=== PATIENT | female | born 1955 | race Two or more races ===

== ENCOUNTER 2017-01-21 16:08 | Inpatient (IN) | payer OTHER ==
[~2017-01-21] VITALS: Ht 162.6 cm; Wt 76.0 kg
[2017-01-21] MEDS ORDERED: Ketorolac 30mg Inj IV ONE (16:15)
--- NOTE | 2017-01-21 16:26 | Emergency Room Report ---
History of Present Illness General Chief Complaint: Abdominal Pain Source: Patient Present Illness HPI The patient presents with abdominal pain. She's been treated for a UTI/ pyelonephritis at [facility]. She is receiving meds for pain and antibiotics, receiving IV medications at home. She states that the pain is 10/10 when she is laying down but increases to 8/10 when she's awaken standing up. She denies any fevers chills vomiting at this time. Paramedics were summoned because the pain became severe. Not move bowels for 4 days. No chest pain, productive cough, extremity pain. She has had some HOOKS going up stairs with weakness. Allergies: Coded Allergies: No Known Allergies (Unverified , 01/21/17) Patient History Past Medical History: see triage record, old chart reviewed, other - review of records from [facility] - h/o pyelonephritis and treated for HTN Social History: Denies: alcohol use, smoking Social History Narrative with friend Reviewed Nursing Documentation: PMH: Agreed, PSxH: Agreed Nursing Documentation-PMH Past Medical History: No History, Except For Hx Hypertension: Yes Review of Systems All Other Systems: negative except mentioned in HPI Physical Exam Vital Signs Date Time Temp Pulse Resp B/P Pulse Ox O2 Delivery O2 Flow Rate FiO2 01/21/17 16:07 97.9 73 18 180/75 99 Sp02 EP Interpretation: reviewed, normal General Appearance: well appearing, no apparent distress, GCS 15 Head: normocephalic Eyes: bilateral eye PERRL, bilateral eye normal inspection ENT: moist mucus membranes Neck: supple Respiratory: lungs clear, normal breath sounds Cardiovascular #1: regular rate, rhythm Cardiovascular #2: 2+ radial (R) Gastrointestinal: normal inspection, normal bowel sounds, non tender, no mass, non-distended, overweight Musculoskeletal: back normal, gait/station normal, normal range of motion Neurologic: alert, oriented x3, motor strength/tone normal, DTRs symmetric, sensory intact, speech normal Psychiatric: mood/affect normal Skin: normal inspection, warm/dry Medical Decision Making Diagnostic Impression: Primary Impression: Hypokalemia Additional Impressions: Hypocalcemia Abdominal pain Qualified Codes: R10.30 - Lower abdominal pain, unspecified Hypoalbuminemia Anemia Qualified Codes: D50.8 - Other iron deficiency anemias ER Course Patient presents with abdominal pain. DDx; constipation, diverticulitis, partially treated pyelonephritis, gastroenteritis amongst others. Complicated history with recent admission for pyelo and receiving IV medications (unknown what antibiotics after review of d/c records). Need for urgent evaluation with labs, abd xrays, EKG. Based on abdominal exam and history, CT not indicated at this time. Will treat with IV hydration and analgesia. Patient had an enema here and had some soft stool as a result. She's is complaining of abdominal pain afterwards. She is a nonsurgical belly at this time. Calcium is extremely well as is potassium. Both of these are ordered to be replaced. Checking ionized calcium. Improved with treatment. Admit med Dr. Rubio. Laboratory Tests Test 01/21/17 17:00 01/21/17 17:30 01/21/17 18:18 White Blood Count 3.3 K/UL (4.8-10.8) L Red Blood Count 2.63 M/UL (4.20-5.40) L Hemoglobin 7.3 G/DL (12.0-16.0) L Hematocrit 21.6 % (37.0-47.0) L Mean Corpuscular Volume 82 FL (80-99) Mean Corpuscular Hemoglobin 27.7 PG (27.0-31.0) Mean Corpuscular Hemoglobin Concent 33.8 G/DL (32.0-36.0) Red Cell Distribution Width 14.8 % (11.6-14.8) Platelet Count 142 K/UL (150-450) L Mean Platelet Volume 6.6 FL (6.5-10.1) Neutrophils (%) (Auto) % (45.0-75.0) Lymphocytes (%) (Auto) % (20.0-45.0) Monocytes (%) (Auto) % (1.0-10.0) Eosinophils (%) (Auto) % (0.0-3.0) Basophils (%) (Auto) % (0.0-2.0) Differential Total Cells Counted 100 Neutrophils % (Manual) 59 % (45-75) Lymphocytes % (Manual) 37 % (20-45) Monocytes % (Manual) 2 % (1-10) Eosinophils % (Manual) 2 % (0-3) Basophils % (Manual) 0 % (0-2) Band Neutrophils 0 % (0-8) Platelet Estimate Decreased L Platelet Morphology Normal Red Blood Cell Morphology Normal Polychromasia 1+ Anisocytosis 1+ Prothrombin Time 11.4 SEC (9.30-11.50) Prothrombin Time INR 1.1 (0.9-1.1) PTT 26 SEC (23-33) Sodium Level 142 mEQ/L (135-145) Potassium Level 2.2 mEQ/L (3.4-4.9) *L Chloride Level 109 mEQ/L (98-107) H Carbon Dioxide Level 16 mEQ/L (20-30) L Anion Gap 17 (5-15) H Blood Urea Nitrogen 11 mg/dL (7-23) Creatinine 0.9 mg/dL (0.5-0.9) Estimate Glomerular Filtration Rate > 60 mL/min (>60) Glucose Level 115 mg/dL (74-106) H Calcium Level 5.2 mg/dL (8.6-10.2) *L Total Bilirubin < 0.2 mg/dL (0.0-1.2) Aspartate Amino Transferase (AST) 13 U/L (5-40) Alanine Aminotransferase (ALT) 7 U/L (3-33) Alkaline Phosphatase 38 U/L (35-104) Total Protein 4.6 g/dL (6.6-8.7) L Albumin 1.7 g/dL (3.5-5.2) L Globulin 2.9 g/dL Albumin/Globulin Ratio 0.5 (1.0-2.7) L Lipase 13 U/L (< 60) Urine Color Pale yellow Urine Appearance Clear Urine pH 6.5 (4.5-8.0) Urine Specific [place] 1.010 (1.005-1.035) Urine Protein 4+ (NEGATIVE) H Urine Glucose (UA) 1+ (NEGATIVE) H Urine Ketones Negative (NEGATIVE) Urine Occult Blood 1+ (NEGATIVE) H Urine Nitrite Negative (NEGATIVE) Urine Bilirubin Negative (NEGATIVE) Urine Urobilinogen Normal MG/DL (0.0-1.0) Urine Leukocyte Esterase 1+ (NEGATIVE) H Urine RBC 2-4 /HPF (0 - 2) H Urine WBC 10-15 /HPF (0 - 2) H Urine Squamous Epithelial Cells Moderate /LPF (NONE/OCC) H Urine Bacteria Few /HPF (NONE) Ionized Calcium (Measured) 1.18 mmol/L (1.10-1.35) EKG Diagnostic Results Rate: normal Rhythm: NSR ST Segments: no acute changes Rhythm Strip Diag. Results EP Interpretation: yes Rhythm: NSR, no PVC's, no ectopy Other X-Ray Diagnostic Results Other X-Ray Diagnostic Results : X-Ray Ordered: abd EP Interpretation: Yes Findings: other - paucity gas, no masses, no SBO Number of Views: 1 Last Vital Signs Date Time Temp Pulse Resp B/P Pulse Ox O2 Delivery O2 Flow Rate FiO2 01/22/17 00:00 97.7 69 20 153/89 98 Room Air Status: improved Disposition: ADMITTED INPATIENT Condition: Serious Juaquin Cantu M.D. Jan 21, 2017 16:26
[2017-01-21] MEDS ORDERED: Fleet's Enema 133ml RECTAL ONE (16:45)
[2017-01-21 17:27] LABS: MEAN CORPUSCULAR HEMOGLOBIN 27.7 PG (27.0-31.0); MEAN CORPUSCULAR HGB CONC 33.8 G/DL (32.0-36.0); MEAN CORPUSCULAR VOLUME 82 FL (80-99); MEAN PLATELET VOLUME 6.6 FL (6.5-10.1); PLATELET COUNT 142 K/UL (150-450); RED BLOOD COUNT 2.63 M/UL (4.20-5.40); RED CELL DISTRIBUTION WIDTH 14.8 % (11.6-14.8); WHITE BLOOD COUNT 3.3 K/UL (4.8-10.8)
[2017-01-21 17:44] LABS: ALANINE AMINOTRANSFERASE 7 U/L (3-33); ALBUMIN/GLOBULIN RATIO 0.5 (1.0-2.7); ASPARTATE AMINO TRANSFERASE 13 U/L (5-40); CARBON DIOXIDE 16 mEQ/L (20-30); CHLORIDE 109 mEQ/L (98-107); CREATININE 0.9 mg/dL (0.5-0.9); GLOMERULAR FILTRATION RATE > 60 mL/min (>60); HEMOLYSIS 0; LIPASE 13 U/L (< 60); SODIUM 142 mEQ/L (135-145); TOTAL PROTEIN 4.6 g/dL (6.6-8.7)
[2017-01-21 17:46] LABS: APPEARANCE,URINE CLEAR; KETONES,URINE NEGATIVE (NEGATIVE); LEUKOCYTE ESTERASE ,URINE 1+ (NEGATIVE); NITRITE,URINE NEGATIVE (NEGATIVE); PH,URINE 6.5 (4.5-8.0); PROTEIN,URINE 4+ (NEGATIVE); UROBILINOGEN,URINE NORMAL MG/DL (0.0-1.0)
[2017-01-21 17:49] LABS: ANION GAP 17 (5-15)
[2017-01-21 17:51] LABS: CALCIUM 5.2 mg/dL (8.6-10.2); POTASSIUM 2.2 mEQ/L (3.4-4.9)
[2017-01-21] MEDS ORDERED: KCl 10% 40mEq/30ml liquid ORAL STA (17:55)
[2017-01-21 17:58] LABS: BACTERIA,URINE FEW /HPF; SQUAMOUS EPITHELIAL CELL,UR MODERATE /LPF (NONE/OCC)
[2017-01-21] MEDS ORDERED: Calcium Gluconate 1gm/10ml vial ONE ×2 (17:59→18:01)
[2017-01-21] MEDS ORDERED: Calcium Gluconate 10% 2 GM in NS 110 ML IVPB ONE (18:00)
[2017-01-21 18:03] LABS: INR 1.1 (0.9-1.1); PROTHROMBIN TIME 11.4 SEC (9.30-11.50)
[2017-01-21 18:53] VITALS: BP 175/79
[2017-01-21 18:56] LABS: BAND NEUTROPHILS % (MANUAL) 0 % (0-8); BASOPHILS % (MANUAL) 0 % (0-2); EOSINOPHILS % (MANUAL) 2 % (0-3); LYMPHOCYTES % (MANUAL) 37 % (20-45); NEUTROPHILS % (MANUAL) 59 % (45-75); TOTAL CELLS COUNTED 100
[2017-01-21 18:58] LABS: ANISOCYTOSIS 1+; PLATELET MORPHOLOGY NORMAL
[2017-01-21 18:59] LABS: PLATELET ESTIMATE DECREASED; POLYCHROMASIA 1+
[2017-01-21] MEDS ORDERED: CARVEDILOL6.25 MG ORAL (20:12)
[2017-01-21] MEDS ORDERED: AMLODIPINE BESY10 MG ORAL (20:12)
[2017-01-21] MEDS ORDERED: ATORVASTATIN CA80 MG ORAL (20:12)
[2017-01-21] MEDS ORDERED: INVANZ1 GM IVPB (20:12)
[2017-01-21] MEDS ORDERED: ASPIRIN81 MG ORAL (20:12)
[2017-01-21] MEDS ORDERED: BENAZEPRIL HCL5 MG ORAL (20:12)
[2017-01-21] MEDS ORDERED: GABAPENTIN300 MG ORAL (20:12)
[2017-01-21] MEDS ORDERED: PROAIR HFA8.5 GM INH (20:12)
[2017-01-21] MEDS ORDERED: HYDRALAZINE HCL50 MG ORAL (20:17)
[2017-01-21] MEDS ORDERED: NOVOLIN 70/305 UNIT1 SUBQ ×2 (20:17)
[2017-01-21 21:05] VITALS: BP 170/75
[2017-01-21 21:45] VITALS: BP 184/77
[2017-01-21] MEDS ORDERED: Mylanta II UD 30ml ORAL PRN (21:45)
[2017-01-21] MEDS ORDERED: Miralax 17gm pkt ORAL PRN (21:45)
[2017-01-21 22:00] VITALS: BP 179/75
[2017-01-21] MEDS: Atorvastatin 80mg tab ORAL SCH (22:00)
[2017-01-21] MEDS: HydrALAZINE 50mg tab ORAL SCH (22:00)
[2017-01-21] MEDS ORDERED: Albuterol 90mcg Inhaler 8gm INH PRN (22:00)
[2017-01-21] MEDS: Docusate 100mg tablet ORAL SCH (22:00)
[2017-01-21] MEDS ORDERED: DuoNeb 0.5-3(2.5)mg/3ml neb HHN PRN (22:00)
[2017-01-21] MEDS: Carvedilol 6.25mg Tab ORAL SCH (22:00)
[2017-01-21] MEDS ORDERED: Ertapenem (INVanz) Inj IV SCH (22:00)
[2017-01-21 22:30] VITALS: BP 158/81
[2017-01-21] MEDS: NS w/KCl 40mEq 1,000 ML IV SCH (22:30)
--- NOTE | 2017-01-21 22:58 | History and Physical ---
History of Present Illness General Date patient seen: Jan 21, 2017 Time patient seen: 22:58 Reason for Hospitalization: Abdominal Pain Present Illness HPI 61 y/o female with pmh of HTN, HLD, DM2 who presents with abd pain. Pt recently admitted at [facility] form 01/15-01/19 when she presented with similar symptoms of abd pain. She was diagnosed with pyelonephritis and diagnosed home w/ home health for IV ertapenem x 1 week (01/20-01/27) per . Pt was doing well but noted worsening abd pain described as LLQ pain, worse w/ movement. She denies f/c, n/v, d/c, chest pain, SOB. Pt denies blood in stool, dysuria. Paramedics were called since pain became too severe while at home. In ED, pt noted to have hgb 7.3. Per ED physician, guaiac neg stool. Pt was given 2U pRBCs. Labs also notable for hypokaleia to 2.2, hypoclacemia to 5.2 but ionized Ca wnl, hypoalbuinemia. Abd x-ray neg. Allergies: Coded Allergies: No Known Allergies (Unverified , 01/21/17) Medication History Scheduled Albuterol Sulfate* (Proair Hfa*), 2 PUFFS INH EVERY 4 HOURS, (Reported) Amlodipine Besylate* (Amlodipine Besylate*), 10 MG ORAL DAILY, (Reported) Aspirin* (Aspirin*), 81 MG ORAL DAILY, (Reported) Atorvastatin Calcium* (Lipitor*), 80 MG ORAL DAILY, (Reported) Benazepril Hcl (Benazepril Hcl), 5 MG ORAL DAILY, (Reported) Carvedilol* (Carvedilol*), 6.25 MG ORAL TWICE A DAY, (Reported) Ertapenem Sodium* (INVanz*), 500 MG IVPB Q24H, (Reported) Gabapentin* (Gabapentin*), 300 MG ORAL THREE TIMES A DAY, (Reported) Hydralazine Hcl* (Hydralazine Hcl*), 50 MG ORAL THREE TIMES A DAY, (Reported) Insulin Human Isophan/Regular (Humulin 70-30 Vial), 22 UNITS SUBQ BEFORE BREAKFAST, (Reported) Insulin Human Isophan/Regular (Humulin 70-30 Vial), 20 UNITS SUBQ BEFORE DINNER, (Reported) Patient History History Provided By: Patient, Family Member, Medical Record, EMS Healthcare decision maker Pt's Resuscitation status Full Code Advanced Directive on File Family History Family History: Patient reports no known family medical history. Social History Social History: (1) No significant social history Review of Systems ROS Narrative CONSTITUTIONAL: No weight loss, fever, chills, weakness or fatigue. HEENT: Eyes: No visual loss, blurred vision, double vision or yellow sclerae. Ears, Nose, Throat: No hearing loss, sneezing, congestion, runny nose or sore throat. SKIN: No rash or itching. CARDIOVASCULAR: No chest pain, chest pressure or chest discomfort. No palpitations or edema. RESPIRATORY: No shortness of breath, cough or sputum. GASTROINTESTINAL: No anorexia, nausea, vomiting or diarrhea. +Abd pain NEUROLOGICAL: No headache, dizziness, syncope, paralysis, ataxia, numbness or tingling in the extremities. No change in bowel or bladder control. MUSCULOSKELETAL: No muscle, back pain, joint pain or stiffness. HEMATOLOGIC: No anemia, bleeding or bruising. LYMPHATICS: No enlarged nodes. No history of splenectomy. PSYCHIATRIC: No history of depression or anxiety. ENDOCRINOLOGIC: No reports of sweating, cold or heat intolerance. No polyuria or polydipsia. ALLERGIES: No history of asthma, hives, eczema or rhinitis. Physical Exam Physical Exam Narrative General: alert, cooperative, no distress, appears stated age Head: normocephalic, without obvious abnormality, atraumatic Eyes: conjunctivae/corneas clear. PERRL, EOM's intact Throat: lips, mucosa, and tongue normal. MMM Neck: supple, symmetrical, trachea midline, and no JVD Lungs: clear to auscultation bilaterally Heart: regular rate and rhythm, S1, S2 normal, no murmur, click, rub or gallop Abdomen: soft, +TTP of LLQ w/o rebound or guarding, non-distended, bowel sounds normal; no masses or organomegaly Extremities: extremities normal, atraumatic, no cyanosis or edema Pulses: 2+ and symmetric Skin: skin color, texture, turgor normal; no rashes or lesions Neurologic: grossly normal, no focal deficits Last 24 Hour Vital Signs Date Time Temp Pulse Resp B/P Pulse Ox O2 Delivery O2 Flow Rate FiO2 01/21/17 22:30 97.5 70 20 158/81 98 Room Air 01/21/17 22:00 97.6 67 16 01/21/17 22:00 97.8 72 16 179/75 99 01/21/17 21:45 97.8 71 16 01/21/17 21:45 97.8 72 16 184/77 99 01/21/17 21:05 97.9 72 18 170/75 99 01/21/17 18:53 97.9 67 18 175/79 99 01/21/17 18:00 97.9 01/21/17 16:07 97.9 73 18 180/75 99 Laboratory Tests Test 01/21/17 17:00 01/21/17 17:30 01/21/17 18:18 White Blood Count 3.3 K/UL (4.8-10.8) L Red Blood Count 2.63 M/UL (4.20-5.40) L Hemoglobin 7.3 G/DL (12.0-16.0) L Hematocrit 21.6 % (37.0-47.0) L Mean Corpuscular Volume 82 FL (80-99) Mean Corpuscular Hemoglobin 27.7 PG (27.0-31.0) Mean Corpuscular Hemoglobin Concent 33.8 G/DL (32.0-36.0) Red Cell Distribution Width 14.8 % (11.6-14.8) Platelet Count 142 K/UL (150-450) L Mean Platelet Volume 6.6 FL (6.5-10.1) Neutrophils (%) (Auto) % (45.0-75.0) Lymphocytes (%) (Auto) % (20.0-45.0) Monocytes (%) (Auto) % (1.0-10.0) Eosinophils (%) (Auto) % (0.0-3.0) Basophils (%) (Auto) % (0.0-2.0) Differential Total Cells Counted 100 Neutrophils % (Manual) 59 % (45-75) Lymphocytes % (Manual) 37 % (20-45) Monocytes % (Manual) 2 % (1-10) Eosinophils % (Manual) 2 % (0-3) Basophils % (Manual) 0 % (0-2) Band Neutrophils 0 % (0-8) Platelet Estimate Decreased L Platelet Morphology Normal Red Blood Cell Morphology Normal Polychromasia 1+ Anisocytosis 1+ Prothrombin Time 11.4 SEC (9.30-11.50) Prothromb Time International Ratio 1.1 (0.9-1.1) Activated Partial Thromboplast Time 26 SEC (23-33) Sodium Level 142 mEQ/L (135-145) Potassium Level 2.2 mEQ/L (3.4-4.9) *L Chloride Level 109 mEQ/L (98-107) H Carbon Dioxide Level 16 mEQ/L (20-30) L Anion Gap 17 (5-15) H Blood Urea Nitrogen 11 mg/dL (7-23) Creatinine 0.9 mg/dL (0.5-0.9) Estimat Glomerular Filtration Rate > 60 mL/min (>60) Glucose Level 115 mg/dL (74-106) H Calcium Level 5.2 mg/dL (8.6-10.2) *L Total Bilirubin < 0.2 mg/dL (0.0-1.2) Aspartate Amino Transf (AST/SGOT) 13 U/L (5-40) Alanine Aminotransferase (ALT/SGPT) 7 U/L (3-33) Alkaline Phosphatase 38 U/L (35-104) Total Protein 4.6 g/dL (6.6-8.7) L Albumin 1.7 g/dL (3.5-5.2) L Globulin 2.9 g/dL Albumin/Globulin Ratio 0.5 (1.0-2.7) L Lipase 13 U/L (< 60) Urine Color Pale yellow Urine Appearance Clear Urine pH 6.5 (4.5-8.0) Urine Specific [place] 1.010 (1.005-1.035) Urine Protein 4+ (NEGATIVE) H Urine Glucose (UA) 1+ (NEGATIVE) H Urine Ketones Negative (NEGATIVE) Urine Occult Blood 1+ (NEGATIVE) H Urine Nitrite Negative (NEGATIVE) Urine Bilirubin Negative (NEGATIVE) Urine Urobilinogen Normal MG/DL (0.0-1.0) Urine Leukocyte Esterase 1+ (NEGATIVE) H Urine RBC 2-4 /HPF (0 - 2) H Urine WBC 10-15 /HPF (0 - 2) H Urine Squamous Epithelial Cells Moderate /LPF (NONE/OCC) H Urine Bacteria Few /HPF (NONE) Ionized Calcium (Measured) 1.18 mmol/L (1.10-1.35) Height (Feet): 5 Height (Inches): 4.00 Weight (Pounds): 120 Medications Current Medications Medications (Trade) Dose Ordered Sig/Aicha Route PRN Reason Start Time Stop Time Status Last Admin Dose Admin Acetaminophen (Tylenol) 650 mg Q4H PRN ORAL Mild Pain (Pain Scale 1-3) 01/21/17 22:00 02/20/17 21:59 Al Hydroxide/Mg Hydroxide (Mylanta II) 30 ml Q6H PRN ORAL dyspepsia 01/21/17 21:45 02/20/17 21:44 Albuterol/ Ipratropium 3 ml 3 ml Q4H PRN HHN Shortness of Breath 01/21/17 22:00 01/26/17 21:59 Amlodipine Besylate (Norvasc) 10 mg DAILY ORAL 01/22/17 09:00 02/21/17 08:59 Aspirin (ASA) 81 mg DAILY ORAL 01/22/17 09:00 02/21/17 08:59 Atorvastatin Calcium (Lipitor) 80 mg QHS ORAL 01/21/17 22:00 02/20/17 21:59 Benazepril HCl (Lotensin) 5 mg DAILY ORAL 01/22/17 09:00 02/21/17 08:59 Bisacodyl (Dulcolax) 10 mg HSPRN PRN RECTAL Constipation 01/21/17 21:45 02/20/17 21:44 Carvedilol (Coreg) 6.25 mg Q12HR ORAL 01/21/17 22:00 02/20/17 21:59 Dextrose (Dextrose 50%) STAT PRN IV Hypoglycemia 01/21/17 21:45 02/20/17 21:44 Diphenhydramine HCl (Benadryl) 25 mg Q6H PRN ORAL Itching/Pruritis 01/21/17 21:45 02/20/17 21:44 Docusate Sodium (Colace) 100 mg EVERY 12 HOURS ORAL 01/21/17 22:00 02/20/17 21:59 Ertapenem/Sodium Chloride (INVanz/Sodium Chloride) 55 ml @ 110 mls/hr Q24H IV 01/22/17 09:00 01/27/17 08:59 Gabapentin (Neurontin) 300 mg THREE TIMES A DAY ORAL 4/27/17 09:00 02/21/17 08:59 Hydralazine HCl (Apresoline) 50 mg Q8HR ORAL 01/21/17 22:00 02/20/17 21:59 Ondansetron HCl (Zofran) 4 mg Q6H PRN IVP Nausea & Vomiting 01/21/17 21:45 02/20/17 21:44 Polyethylene Glycol (Miralax) 17 gm HSPRN PRN ORAL Constipation 01/21/17 21:45 02/20/17 21:44 Sodium Chloride 1,000 ml @ 100 mls/hr Q10H IV 01/21/17 22:30 02/20/17 22:29 Assessment/Plan Problem List: (1) Abdominal pain ICD Codes: R10.9 - Unspecified abdominal pain SNOMED: 81170991 Qualifiers: Qualified Codes: R10.30 - Lower abdominal pain, unspecified (2) Hypokalemia ICD Codes: E87.6 - Hypokalemia SNOMED: 52896424 (3) Hypocalcemia ICD Codes: E83.51 - Hypocalcemia SNOMED: 4338171 (4) Hypoalbuminemia ICD Codes: E88.09 - Other disorders of plasma-protein metabolism, not elsewhere classified SNOMED: 670880186 (5) Pyelonephritis ICD Codes: N12 - Tubulo-interstitial nephritis, not specified as acute or chronic SNOMED: 17342753 Status: stable Assessment/Plan Admit inpt Attempt to obtain OSH records from [facility] given recent admission there for similar symptoms and pt diagnosed w/ pyelonephritis Check U/S abd Consider CT a/p Cont home meds including IV ertapenem which is to end 5/2 per ID consulted Pain control, bowel regimen, supportive care FULL CODE Milly Khan M.D. Jan 21, 2017 22:58
[2017-01-21] MEDS ORDERED: Ertapenem 500mg ivpb (q24h) IV SCH ×2 (23:00)
[2017-01-22] VITALS: BP 153/89
[2017-01-22 04:00] VITALS: BP 182/80
[2017-01-22] MEDS: NS w/KCl 40mEq 1,000 ML IV SCH (04:07)
[2017-01-22] MEDS: HydrALAZINE 50mg tab ORAL SCH ×3 (05:25→22:00)
[2017-01-22 07:34] LABS: CALCIUM 9.7 mg/dL (8.6-10.2); CREATININE 1.4 mg/dL (0.5-0.9); GLOMERULAR FILTRATION RATE 38.2 mL/min (>60); MAGNESIUM 1.6 mg/dL (1.7-2.5); POTASSIUM 3.7 mEQ/L (3.4-4.9)
[2017-01-22 08:00] VITALS: BP 162/81
--- NOTE | 2017-01-22 08:47 | Diagnostic Imaging Report ---
Indication: Abdominal pain Technique: Supine view of the abdomen Comparison: none Findings: Bowel gas pattern is unremarkable. No unusual masses or calcifications. Impression: No acute process
[2017-01-22] MEDS: Aspirin Baby 81mg ORAL SCH (08:54)
[2017-01-22] MEDS: Carvedilol 6.25mg Tab ORAL SCH ×2 (08:55→21:00)
[2017-01-22] MEDS: Docusate 100mg tablet ORAL SCH ×2 (08:57→21:00)
[2017-01-22] MEDS ORDERED: Benazepril 10mg tab ORAL SCH (09:00)
[2017-01-22] MEDS ORDERED: Ertapenem 0.5 GM in NS 55 ML IV SCH (09:00)
[2017-01-22 11:32] LABS: MEAN CORPUSCULAR HEMOGLOBIN 27.1 PG (27.0-31.0); MEAN CORPUSCULAR HGB CONC 32.1 G/DL (32.0-36.0); MEAN CORPUSCULAR VOLUME 84 FL (80-99); MEAN PLATELET VOLUME 6.6 FL (6.5-10.1); PLATELET COUNT 220 K/UL (150-450); RED BLOOD COUNT 4.76 M/UL (4.20-5.40); RED CELL DISTRIBUTION WIDTH 14.9 % (11.6-14.8); WHITE BLOOD COUNT 4.1 K/UL (4.8-10.8)
[2017-01-22 12:00] VITALS: BP 138/70
[2017-01-22 12:08] LABS: ANISOCYTOSIS 1+; BAND NEUTROPHILS % (MANUAL) 0 % (0-8); BASOPHILS % (MANUAL) 0 % (0-2); EOSINOPHILS % (MANUAL) 4 % (0-3); LYMPHOCYTES % (MANUAL) 29 % (20-45); NEUTROPHILS % (MANUAL) 57 % (45-75); PLATELET ESTIMATE ADEQUATE; PLATELET MORPHOLOGY NORMAL; TOTAL CELLS COUNTED 100
[2017-01-22 12:09] LABS: PATH BLOOD SMEAR/OMC SENT TO PATHOLOGIST
--- NOTE | 2017-01-22 12:45 | Infectious Diseases Prog Note ---
Assessment/Plan Assessment/Plan Full consult to follow: A) 1) uti - on ertapenem at home 2) abdominal pain 3) pmh noted 4) allergies -negative P) 1) ertapenem 2) check labs, us 3) abdominal pain w/u per primary 4) thank you Subjective Allergies: Coded Allergies: No Known Allergies (Unverified , 01/21/17) Objective Vital Signs Last 24 Hour Vital Signs Date Time Temp Pulse Resp B/P Pulse Ox O2 Delivery O2 Flow Rate FiO2 01/22/17 08:55 84 162/81 01/22/17 08:55 84 162/81 01/22/17 08:54 162/81 01/22/17 08:00 97.7 84 20 162/81 97 Room Air 01/22/17 06:42 74 18 Room Air 01/22/17 05:25 176/81 01/22/17 04:00 97.7 75 18 182/80 97 Room Air 01/22/17 00:00 97.7 69 20 153/89 98 Room Air 01/21/17 22:30 97.5 70 20 158/81 98 Room Air 01/21/17 22:05 97.8 72 16 179/75 99 01/21/17 22:00 97.6 67 16 01/21/17 22:00 97.8 72 16 179/75 99 01/21/17 21:45 97.8 71 16 01/21/17 21:45 97.8 72 16 184/77 99 01/21/17 21:05 97.9 72 18 170/75 99 01/21/17 18:53 97.9 67 18 175/79 99 01/21/17 18:00 97.9 01/21/17 16:07 97.9 73 18 180/75 99 Height (Feet): 5 Height (Inches): 4.00 Weight (Pounds): 132 Microbiology Date/Time Source Procedure Growth Status 01/21/17 17:30 Urine,Clean Catch Urine Culture - Preliminary NO GROWTH Resulted Laboratory Tests Test 01/21/17 17:00 01/21/17 17:30 01/21/17 18:18 01/22/17 05:20 White Blood Count 3.3 K/UL (4.8-10.8) L Red Blood Count 2.63 M/UL (4.20-5.40) L Hemoglobin 7.3 G/DL (12.0-16.0) L Hematocrit 21.6 % (37.0-47.0) L Mean Corpuscular Volume 82 FL (80-99) Mean Corpuscular Hemoglobin 27.7 PG (27.0-31.0) Mean Corpuscular Hemoglobin Concent 33.8 G/DL (32.0-36.0) Red Cell Distribution Width 14.8 % (11.6-14.8) Platelet Count 142 K/UL (150-450) L Mean Platelet Volume 6.6 FL (6.5-10.1) Neutrophils (%) (Auto) % (45.0-75.0) Lymphocytes (%) (Auto) % (20.0-45.0) Monocytes (%) (Auto) % (1.0-10.0) Eosinophils (%) (Auto) % (0.0-3.0) Basophils (%) (Auto) % (0.0-2.0) Differential Total Cells Counted 100 Neutrophils % (Manual) 59 % (45-75) Lymphocytes % (Manual) 37 % (20-45) Monocytes % (Manual) 2 % (1-10) Eosinophils % (Manual) 2 % (0-3) Basophils % (Manual) 0 % (0-2) Band Neutrophils 0 % (0-8) Platelet Estimate Decreased L Platelet Morphology Normal Red Blood Cell Morphology Normal Polychromasia 1+ Anisocytosis 1+ Prothrombin Time 11.4 SEC (9.30-11.50) Prothromb Time International Ratio 1.1 (0.9-1.1) Activated Partial Thromboplast Time 26 SEC (23-33) Sodium Level 142 mEQ/L (135-145) 142 mEQ/L (135-145) Potassium Level 2.2 mEQ/L (3.4-4.9) *L 3.7 mEQ/L (3.4-4.9) # Chloride Level 109 mEQ/L (98-107) H 102 mEQ/L (98-107) Carbon Dioxide Level 16 mEQ/L (20-30) L 24 mEQ/L (20-30) Anion Gap 17 (5-15) H 16 (5-15) H Blood Urea Nitrogen 11 mg/dL (7-23) 13 mg/dL (7-23) Creatinine 0.9 mg/dL (0.5-0.9) 1.4 mg/dL (0.5-0.9) #H Estimat Glomerular Filtration Rate > 60 mL/min (>60) 38.2 mL/min (>60) Glucose Level 115 mg/dL (74-106) H 112 mg/dL (74-106) H Calcium Level 5.2 mg/dL (8.6-10.2) *L 9.7 mg/dL (8.6-10.2) # Total Bilirubin < 0.2 mg/dL (0.0-1.2) Aspartate Amino Transf (AST/SGOT) 13 U/L (5-40) Alanine Aminotransferase (ALT/SGPT) 7 U/L (3-33) Alkaline Phosphatase 38 U/L (35-104) Total Protein 4.6 g/dL (6.6-8.7) L Albumin 1.7 g/dL (3.5-5.2) L Globulin 2.9 g/dL Albumin/Globulin Ratio 0.5 (1.0-2.7) L Lipase 13 U/L (< 60) Urine Color Pale yellow Urine Appearance Clear Urine pH 6.5 (4.5-8.0) Urine Specific [place] 1.010 (1.005-1.035) Urine Protein 4+ (NEGATIVE) H Urine Glucose (UA) 1+ (NEGATIVE) H Urine Ketones Negative (NEGATIVE) Urine Occult Blood 1+ (NEGATIVE) H Urine Nitrite Negative (NEGATIVE) Urine Bilirubin Negative (NEGATIVE) Urine Urobilinogen Normal MG/DL (0.0-1.0) Urine Leukocyte Esterase 1+ (NEGATIVE) H Urine RBC 2-4 /HPF (0 - 2) H Urine WBC 10-15 /HPF (0 - 2) H Urine Squamous Epithelial Cells Moderate /LPF (NONE/OCC) H Urine Bacteria Few /HPF (NONE) Ionized Calcium (Measured) 1.18 mmol/L (1.10-1.35) Reticulocyte Count 0.9 % (0.0-2.0) Magnesium Level 1.6 mg/dL (1.7-2.5) L Prealbumin Pending Vitamin D 25-Hydroxy Pending 25-Hydroxy Vitamin D2 Pending 25-Hydroxy Vitamin D3 Pending Test 01/22/17 09:35 White Blood Count 4.1 K/UL (4.8-10.8) L Red Blood Count 4.76 M/UL (4.20-5.40) Hemoglobin 12.9 G/DL (12.0-16.0) # Hematocrit 40.1 % (37.0-47.0) # Mean Corpuscular Volume 84 FL (80-99) Mean Corpuscular Hemoglobin 27.1 PG (27.0-31.0) Mean Corpuscular Hemoglobin Concent 32.1 G/DL (32.0-36.0) Red Cell Distribution Width 14.9 % (11.6-14.8) H Platelet Count 220 K/UL (150-450) # Mean Platelet Volume 6.6 FL (6.5-10.1) Neutrophils (%) (Auto) % (45.0-75.0) Lymphocytes (%) (Auto) % (20.0-45.0) Monocytes (%) (Auto) % (1.0-10.0) Eosinophils (%) (Auto) % (0.0-3.0) Basophils (%) (Auto) % (0.0-2.0) Differential Total Cells Counted 100 Neutrophils % (Manual) 57 % (45-75) Lymphocytes % (Manual) 29 % (20-45) Monocytes % (Manual) 10 % (1-10) Eosinophils % (Manual) 4 % (0-3) H Basophils % (Manual) 0 % (0-2) Band Neutrophils 0 % (0-8) Platelet Estimate Adequate Platelet Morphology Normal Anisocytosis 1+ Current Medications Medications (Trade) Dose Ordered Sig/Aicha Route PRN Reason Start Time Stop Time Status Last Admin Dose Admin Acetaminophen (Tylenol) 650 mg Q4H PRN ORAL Mild Pain (Pain Scale 1-3) 01/21/17 22:00 02/20/17 21:59 Al Hydroxide/Mg Hydroxide (Mylanta II) 30 ml Q6H PRN ORAL dyspepsia 01/21/17 21:45 02/20/17 21:44 Albuterol/ Ipratropium 3 ml 3 ml Q4H PRN HHN Shortness of Breath 01/21/17 22:00 01/26/17 21:59 Amlodipine Besylate (Norvasc) 10 mg DAILY ORAL 01/22/17 09:00 02/21/17 08:59 01/22/17 08:55 Aspirin (ASA) 81 mg DAILY ORAL 01/22/17 09:00 02/21/17 08:59 01/22/17 08:54 Atorvastatin Calcium (Lipitor) 80 mg QHS ORAL 01/21/17 22:00 02/20/17 21:59 Bisacodyl (Dulcolax) 10 mg HSPRN PRN RECTAL Constipation 01/21/17 21:45 02/20/17 21:44 Carvedilol (Coreg) 6.25 mg Q12HR ORAL 01/21/17 22:00 02/20/17 21:59 01/22/17 08:55 Dextrose (Dextrose 50%) STAT PRN IV Hypoglycemia 01/21/17 21:45 02/20/17 21:44 Diphenhydramine HCl (Benadryl) 25 mg Q6H PRN ORAL Itching/Pruritis 01/21/17 21:45 02/20/17 21:44 Docusate Sodium (Colace) 100 mg EVERY 12 HOURS ORAL 01/21/17 22:00 02/20/17 21:59 01/22/17 08:57 Ertapenem/Sodium Chloride (INVanz/Sodium Chloride) 55 ml @ 110 mls/hr Q24H IVPB 01/23/17 06:00 01/28/17 05:59 Gabapentin (Neurontin) 300 mg THREE TIMES A DAY ORAL 01/22/17 09:00 02/21/17 08:59 01/22/17 08:55 Hydralazine HCl (Apresoline) 50 mg Q8HR ORAL 01/21/17 22:00 02/20/17 21:59 01/22/17 05:25 Ondansetron HCl (Zofran) 4 mg Q6H PRN IVP Nausea & Vomiting 01/21/17 21:45 02/20/17 21:44 Polyethylene Glycol (Miralax) 17 gm HSPRN PRN ORAL Constipation 01/21/17 21:45 02/20/17 21:44 KAE VALDIVIA Jan 22, 2017 12:45
--- NOTE | 2017-01-22 15:13 | Wound Care Consultation ---
Wound Assessment Wound Assessment #1: Wound Number: #1 Wound Present on Admission: Yes New Wound: No Status Change of Wound: No Wound Location Body Site Modif: right, mid Wound Location Body Site: buttocks Wound Type: pressure ulcer Ace Test: Does not Ace Pressure Ulcer Stage: II Wound Thickness: Partial Thickness Wound Length: 1.5 Wound Width: 1.0 Wound Depth: 0.2 Percent of Wound [place]/Red: 50 Percent of Wound Black/Brown: 50 - scab formation appearing Wound Drainage Amount: None Wound Drainage Odor: None/Absent Tissue Surrounding Wound: Erythemic Wound General Appearance: Reddened Wound Assessment #2: Wound Number: #2 Wound Present on Admission: Yes New Wound: No Status Change of Wound: No Wound Location Body Site Modif: other - sacrococcygeal Wound Type: pressure ulcer Ace Test: Does not Ace Pressure Ulcer Stage: deep tissue injury - suspected Wound Thickness: Full Thickness Wound Length: 1.0 Wound Width: 1.0 Wound Depth: utd Percent of Wound Lin[place]/Red: 50 Percent of Wound Purple/Maroon: 50 Wound Drainage Amount: None Wound Drainage Odor: None/Absent Tissue Surrounding Wound: Erythemic Wound Comment #1 Right mid buttock pressure ulcer stage II. #2 Sacrococcygeal suspected deep tissue injury. #3 left buttock skin tag. Recommendation. -Apply low air loss overlay mattress. - Local wound care as ordered. -Turn and reposition. -Keep clean and dry. -Optimal Nutrition. -Offload affected site. -Assess and follow up with MD for any further changes of condition noted. CAILIN BAH Jan 22, 2017 15:13
[2017-01-22 16:00] VITALS: BP 135/67
[2017-01-22 20:00] VITALS: BP 111/60
[2017-01-22] MEDS: Atorvastatin 80mg tab ORAL SCH (21:00)
--- NOTE | 2017-01-22 21:37 | General Progress Note ---
Assessment/Plan Problem List: (1) JEN (acute kidney injury) ICD Codes: N17.9 - Acute kidney failure, unspecified SNOMED: 67631263 (2) Abdominal pain ICD Codes: R10.9 - Unspecified abdominal pain SNOMED: 59920550 Qualifiers: Qualified Codes: R10.30 - Lower abdominal pain, unspecified (3) Hypokalemia ICD Codes: E87.6 - Hypokalemia SNOMED: 80922673 (4) Hypocalcemia ICD Codes: E83.51 - Hypocalcemia SNOMED: 1113262 (5) Hypoalbuminemia ICD Codes: E88.09 - Other disorders of plasma-protein metabolism, not elsewhere classified SNOMED: 416892978 (6) Pyelonephritis ICD Codes: N12 - Tubulo-interstitial nephritis, not specified as acute or chronic SNOMED: 91145076 Status: stable Assessment/Plan Attempt to obtain OSH records from [facility] given recent admission there for similar symptoms and pt diagnosed w/ pyelonephritis--- request has been sent F/u U/S abd F/u CT a/p--shows minimal left hydroureter noted without an obstructing stone which may represent recent passage of stone vs pyelonephritis/pyelitis Cont home meds including IV ertapenem which is to end 5/2 per ID consulted, appreciate rec's Will consult renal given rising Cr IVFs Pain control, bowel regimen, supportive care Pt to f/u with PCP Dr. Waddell at [facility] on d/c FULL CODE Subjective Date patient seen: Jan 22, 2017 Time patient seen: 12:00 ROS Limited/Unobtainable: No Constitutional: Reports: no symptoms HEENT: Reports: no symptoms Cardiovascular: Reports: no symptoms Respiratory: Reports: no symptoms Gastrointestinal/Abdominal: Reports: abdominal pain Genitourinary: Reports: no symptoms Neurologic/Psychiatric: Reports: no symptoms Endocrine: Reports: no symptoms Hematologic/Lymphatic: Reports: no symptoms Allergies: Coded Allergies: No Known Allergies (Unverified , 01/21/17) All Systems: reviewed and negative except above Subjective Abd pain improved Cr rising to 1.9 Objective Last 24 Hour Vital Signs Date Time Temp Pulse Resp B/P Pulse Ox O2 Delivery O2 Flow Rate FiO2 01/22/17 20:00 96.6 68 18 111/60 95 Room Air 01/22/17 19:51 71 18 Room Air 01/22/17 16:00 97.9 74 20 135/67 97 Nasal Cannula 2.0 01/22/17 14:26 138/70 01/22/17 12:00 97.7 67 20 138/70 96 Room Air 01/22/17 08:55 84 162/81 01/22/17 08:55 84 162/81 01/22/17 08:54 162/81 01/22/17 08:00 97.7 84 20 162/81 97 Room Air 01/22/17 06:42 74 18 Room Air 01/22/17 05:25 176/81 01/22/17 04:00 97.7 75 18 182/80 97 Room Air 01/22/17 00:00 97.7 69 20 153/89 98 Room Air 01/21/17 22:30 97.5 70 20 158/81 98 Room Air 01/21/17 22:05 97.8 72 16 179/75 99 01/21/17 22:00 97.6 67 16 01/21/17 22:00 97.8 72 16 179/75 99 01/21/17 21:45 97.8 71 16 01/21/17 21:45 97.8 72 16 184/77 99 Intake and Output 01/21/17 01/22/17 19:00 07:00 Intake Total 120 ml 450 ml Balance 120 ml 450 ml Intake Oral 120 ml IV Total 200 ml Blood Product 250 ml # Voids 1 4 # Bowel Movements 2 Laboratory Tests 01/22/17 05:20: Reticulocyte Count 0.9, Sodium Level 142, Potassium Level 3.7#, Chloride Level 102, Carbon Dioxide Level 24, Anion Gap 16H, Blood Urea Nitrogen 13, Creatinine 1.4#H, Estimat Glomerular Filtration Rate 38.2, Glucose Level 112H, Calcium Level 9.7#, Magnesium Level 1.6L, Prealbumin [Pending], Vitamin D 25-Hydroxy [ Pending], 25-Hydroxy Vitamin D2 [Pending], 25-Hydroxy Vitamin D3 [Pending] 01/22/17 09:35: White Blood Count 4.1L, Red Blood Count 4.76, Hemoglobin 12.9#, Hematocrit 40.1# , Mean Corpuscular Volume 84, Mean Corpuscular Hemoglobin 27.1, Mean Corpuscular Hemoglobin Concent 32.1, Red Cell Distribution Width 14.9H, Platelet Count 220#, Mean Platelet Volume 6.6, Neutrophils (%) (Auto) , Lymphocytes (%) (Auto) , Monocytes (%) (Auto) , Eosinophils (%) (Auto) , Basophils (%) (Auto) , Differential Total Cells Counted 100, Neutrophils % ( Manual) 57, Lymphocytes % (Manual) 29, Monocytes % (Manual) 10, Eosinophils % ( Manual) 4H, Basophils % (Manual) 0, Band Neutrophils 0, Platelet Estimate Adequate, Platelet Morphology Normal, Anisocytosis 1+ Height (Feet): 5 Height (Inches): 4.00 Weight (Pounds): 132 Objective General: alert, cooperative, no distress, appears stated age Head: normocephalic, without obvious abnormality, atraumatic Eyes: conjunctivae/corneas clear. PERRL, EOM's intact Throat: lips, mucosa, and tongue normal. MMM Neck: supple, symmetrical, trachea midline, and no JVD Lungs: clear to auscultation bilaterally Heart: regular rate and rhythm, S1, S2 normal, no murmur, click, rub or gallop Abdomen: soft, non-tender, non-distended, bowel sounds normal; no masses or organomegaly Extremities: extremities normal, atraumatic, no cyanosis or edema Pulses: 2+ and symmetric Skin: skin color, texture, turgor normal; no rashes or lesions Neurologic: grossly normal, no focal deficits Milly Khan M.D. Jan 22, 2017 21:37
[2017-01-23] VITALS: BP 120/63
[2017-01-23 04:00] VITALS: BP 118/62
[2017-01-23] MEDS: Ertapenem 1 GM in NS 55 ML IVPB SCH (06:00)
[2017-01-23] MEDS: HydrALAZINE 50mg tab ORAL SCH ×3 (06:00→21:12)
[2017-01-23] MEDS: NovoLOG Insulin Flexpen SUBQ SCH ×4 (06:57→20:34)
[2017-01-23 07:45] VITALS: BP 134/66
[2017-01-23] MEDS: Carvedilol 6.25mg Tab ORAL SCH ×2 (08:19→20:31)
[2017-01-23] MEDS: Docusate 100mg tablet ORAL SCH ×3 (08:19→20:37)
[2017-01-23] MEDS: Aspirin Baby 81mg ORAL SCH (08:19)
[2017-01-23 09:48] LABS: BASOPHILS % (AUTO) 0.9 % (0.0-2.0); EOSINOPHILS % (AUTO) 2.7 % (0.0-3.0); LYMPHOCYTES % (AUTO) 32.1 % (20.0-45.0); MEAN CORPUSCULAR HEMOGLOBIN 26.6 PG (27.0-31.0); MEAN CORPUSCULAR HGB CONC 31.1 G/DL (32.0-36.0); MEAN CORPUSCULAR VOLUME 85 FL (80-99); MEAN PLATELET VOLUME 6.8 FL (6.5-10.1); MONOCYTES % (AUTO) 9.8 % (1.0-10.0); NEUTROPHILS % (AUTO) 54.6 % (45.0-75.0); PLATELET COUNT 250 K/UL (150-450); RED BLOOD COUNT 4.86 M/UL (4.20-5.40); WHITE BLOOD COUNT 3.9 K/UL (4.8-10.8)
[2017-01-23 10:04] LABS: CALCIUM 8.9 mg/dL (8.6-10.2); CREATININE 1.9 mg/dL (0.5-0.9); GLOMERULAR FILTRATION RATE 26.9 mL/min (>60); MAGNESIUM 2.1 mg/dL (1.7-2.5); POTASSIUM 3.9 mEQ/L (3.4-4.9)
--- NOTE | 2017-01-23 10:12 | Diagnostic Imaging Report ---
Indication: Abdominal pain Technique: Continuous helical transaxial imaging of the abdomen and pelvis was obtained from the lung bases to the pubic symphysis. No intravenous contrast was administered. Coronal 2-D reformats were also obtained. Total Dose length Product (DLP): [address] Dose Index Volume (CTDIvol): 15 mGy Comparison: none Findings: Generalized cardiomegaly is present. Sternotomy is noted. The lung bases appear clear. Gallstones are noted. There is mild left hydroureter. The left renal pelvis and calyces do not appear significantly distended. There is no obstructing stone in the ureter and no stone is seen in the urinary bladder. Multiple punctate nonobstructive stones are noted within both kidneys. The left hydroureter is probably on the basis of a recently passed stone. Differential includes urinary tract infection such as pyelonephritis/pyelitis. Please correlate clinically. No evidence of bowel obstruction. The appendix is partially seen and appears normal. There is air in the urinary bladder presumably from recent Morales catheter placement. No Morales catheter is currently seen. Uterus is noted and atrophic. Atherosclerotic disease of aorta noted with mural calcification mild to moderate degree. Evaluation of solid organs is limited on this study done without IV contrast. The size of the liver and spleen appear normal. Impression: Minimal left hydroureter noted without an obstructing stone. Considerations include recent passage of a stone from the left kidney versus or pyelonephritis/pyelitis. Please correlate clinically. Bilateral nonobstructive nephrolithiasis. Gallstones Small hiatal hernia Cardiomegaly and atherosclerotic vascular disease Sternotomy Air in the urinary bladder presumably from recent Morales catheter placement. Please confirm clinically. The CT scanner at [facility] is accredited by the [employer] and the scans are performed using protocols designed to limit radiation exposure to as low as reasonably achievable to attain images of sufficient resolution adequate for diagnostic evaluation.
[2017-01-23 10:36] LABS: BILIRUBIN,DIRECT 0.1 mg/dL (0.1-0.3); TOTAL PROTEIN 7.6 g/dL (6.6-8.7)
[2017-01-23 11:24] VITALS: BP 138/78
--- NOTE | 2017-01-23 13:29 | Cardiology Report ---
APPROVED REPORT EKG Measurement Heart [id number] Normal sinus rhythm Nonspecific T wave abnormality Prolonged QT Abnormal ECG
--- NOTE | 2017-01-23 14:42 | Infectious Diseases Prog Note ---
Assessment/Plan Assessment/Plan Full consult dictated: A) 1) uti/pyelonephritis 2) abdominal pain - ct scan noted 3) nacho - ? etiology 4) allergies -negative 5) dm, htn, anemia, hld P) 1) ertapenem - plan was for 1 week starting on 01/20/17 2) check labs/cr 3) renal evaluation 4) communicated with Dr. Atkins Subjective Constitutional: Denies: fever Respiratory: Denies: shortness of breath Cardiovascular: Denies: chest pain Gastrointestinal/Abdominal: Denies: diarrhea, nausea, vomiting Allergies: Coded Allergies: No Known Allergies (Unverified , 01/21/17) Objective Vital Signs Last 24 Hour Vital Signs Date Time Temp Pulse Resp B/P Pulse Ox O2 Delivery O2 Flow Rate FiO2 01/23/17 11:24 97.9 76 14 138/78 97 Nasal Cannula 01/23/17 08:19 78 134/66 01/23/17 08:19 78 134/66 01/23/17 07:45 98.1 78 14 134/66 93 Room Air 01/23/17 06:49 78 18 Room Air 01/23/17 04:00 97.0 70 18 118/62 99 Room Air 01/23/17 00:00 97.0 70 18 120/63 97 Room Air 01/22/17 22:00 128/68 01/22/17 21:00 69 128/68 01/22/17 20:00 96.6 68 18 111/60 95 Room Air 01/22/17 19:51 71 18 Room Air 01/22/17 16:00 97.9 74 20 135/67 97 Nasal Cannula 2.0 Height (Feet): 5 Height (Inches): 4.00 Weight (Pounds): 164 General Appearance: no acute distress HEENT: normocephalic, atraumatic, anicteric, mucous membranes moist, PERRL Respiratory/Chest: chest wall non-tender, lungs clear, normal breath sounds, no respiratory distress Cardiovascular: normal rate, regular rhythm, no gallop/murmur Abdomen: normal bowel sounds, soft, non tender, no organomegaly Microbiology Date/Time Source Procedure Growth Status 01/21/17 17:30 Urine,Clean Catch Urine Culture - Preliminary NO GROWTH AFTER 24 HOURS Resulted Laboratory Tests Test 01/23/17 09:15 White Blood Count 3.9 K/UL (4.8-10.8) L Red Blood Count 4.86 M/UL (4.20-5.40) Hemoglobin 12.9 G/DL (12.0-16.0) Hematocrit 41.5 % (37.0-47.0) Mean Corpuscular Volume 85 FL (80-99) Mean Corpuscular Hemoglobin 26.6 PG (27.0-31.0) L Mean Corpuscular Hemoglobin Concent 31.1 G/DL (32.0-36.0) L Red Cell Distribution Width 15.0 % (11.6-14.8) H Platelet Count 250 K/UL (150-450) Mean Platelet Volume 6.8 FL (6.5-10.1) Neutrophils (%) (Auto) 54.6 % (45.0-75.0) Lymphocytes (%) (Auto) 32.1 % (20.0-45.0) Monocytes (%) (Auto) 9.8 % (1.0-10.0) Eosinophils (%) (Auto) 2.7 % (0.0-3.0) Basophils (%) (Auto) 0.9 % (0.0-2.0) Sodium Level 134 mEQ/L (135-145) L Potassium Level 3.9 mEQ/L (3.4-4.9) Chloride Level 94 mEQ/L (98-107) L Carbon Dioxide Level 22 mEQ/L (20-30) Anion Gap 18 (5-15) H Blood Urea Nitrogen 25 mg/dL (7-23) H Creatinine 1.9 mg/dL (0.5-0.9) H Estimat Glomerular Filtration Rate 26.9 mL/min (>60) Glucose Level 311 mg/dL (74-106) #H Hemoglobin A1c 7.3 % (< 6.0) H Calcium Level 8.9 mg/dL (8.6-10.2) Magnesium Level 2.1 mg/dL (1.7-2.5) Total Bilirubin 0.2 mg/dL (0.0-1.2) Direct Bilirubin 0.1 mg/dL (0.1-0.3) Aspartate Amino Transf (AST/SGOT) 23 U/L (5-40) Alanine Aminotransferase (ALT/SGPT) 16 U/L (3-33) Alkaline Phosphatase 66 U/L (35-104) Total Protein 7.6 g/dL (6.6-8.7) Albumin 3.1 g/dL (3.5-5.2) L Current Medications Medications (Trade) Dose Ordered Sig/Aicha Route PRN Reason Start Time Stop Time Status Last Admin Dose Admin Acetaminophen (Tylenol) 650 mg Q4H PRN ORAL Mild Pain (Pain Scale 1-3) 01/21/17 22:00 02/20/17 21:59 Al Hydroxide/Mg Hydroxide (Mylanta II) 30 ml Q6H PRN ORAL dyspepsia 01/21/17 21:45 02/20/17 21:44 Albuterol/ Ipratropium 3 ml 3 ml Q4H PRN HHN Shortness of Breath 01/21/17 22:00 01/26/17 21:59 Amlodipine Besylate (Norvasc) 10 mg DAILY ORAL 01/22/17 09:00 02/21/17 08:59 01/23/17 08:19 Aspirin (ASA) 81 mg DAILY ORAL 01/22/17 09:00 02/21/17 08:59 01/23/17 08:19 Atorvastatin Calcium (Lipitor) 80 mg QHS ORAL 01/21/17 22:00 02/20/17 21:59 01/22/17 21:00 Bisacodyl (Dulcolax) 10 mg HSPRN PRN RECTAL Constipation 01/21/17 21:45 02/20/17 21:44 Carvedilol (Coreg) 6.25 mg Q12HR ORAL 01/21/17 22:00 02/20/17 21:59 01/23/17 08:19 Dextrose STAT PRN IV Hypoglycemia 01/22/17 21:30 02/21/17 21:29 Diphenhydramine HCl (Benadryl) 25 mg Q6H PRN ORAL Itching/Pruritis 01/21/17 21:45 02/20/17 21:44 Docusate Sodium (Colace) 100 mg EVERY 12 HOURS ORAL 01/21/17 22:00 02/20/17 21:59 01/23/17 08:19 Ertapenem/Sodium Chloride (INVanz/Sodium Chloride) 55 ml @ 110 mls/hr Q24H IVPB 01/23/17 06:00 01/28/17 05:59 01/23/17 06:00 Gabapentin (Neurontin) 300 mg THREE TIMES A DAY ORAL 01/22/17 09:00 02/21/17 08:59 01/23/17 12:00 Hydralazine HCl (Apresoline) 50 mg Q8HR ORAL 01/21/17 22:00 02/20/17 21:59 01/23/17 06:00 Insulin Aspart (NovoLOG) BEFORE MEALS AND HS SUBQ 01/23/17 06:30 02/22/17 06:29 01/23/17 12:02 Ondansetron HCl (Zofran) 4 mg Q6H PRN IVP Nausea & Vomiting 01/21/17 21:45 02/20/17 21:44 Polyethylene Glycol (Miralax) 17 gm HSPRN PRN ORAL Constipation 01/21/17 21:45 02/20/17 21:44 Sodium Chloride (Sodium Chloride 1000ml bag) 1,000 ml @ 75 mls/hr [id number] IV 01/23/17 11:00 02/22/17 10:59 01/23/17 11:15 KAE VALDIVIA Jan 23, 2017 14:42
--- NOTE | 2017-01-23 15:47 | Consultation ---
Consult Note Consult Note asked to eval at the request of Dr Milly fenton The patient presents with abdominal pain. She's been treated for a UTI/ pyelonephritis at [facility]. She is receiving meds for pain and antibiotics, receiving IV medications at home. She states that the pain is 10/10 when she is laying down but increases to 8/10 when she's awaken standing up. She denies any fevers chills vomiting at this time. Paramedics were summoned because the pain became severe. Not move bowels for 4 days. No chest pain, productive cough, extremity pain. She has had some HOOKS going up stairs with weakness. Assessment/Plan Acute renal failure Cr 0.4 up to 1.9 ? Dehydration DM + Proteinuria , likely Diabetic Nephropathy Others: (1) Abdominal pain (2) Hypokalemia- resolved (3) Hypocalcemia- resolved (4) Hypoalbuminemia (5) Pyelonephritis Plan: Hydrate monitor renal parameters avoid nephrotoxics ERNST ANGELES Jan 23, 2017 15:47
[2017-01-23 16:22] VITALS: BP 124/62
--- NOTE | 2017-01-23 16:37 | Diagnostic Imaging Report ---
Indication:Abdominal pain Technique: Grayscale and duplex Doppler imaging of the abdomen performed. Comparison: None Findings: Gallstones are present. CBD is 3 mm which is normal. The liver is unremarkable. Aorta shows mural calcification. There is no ascites, splenomegaly, or obvious abnormalities of the pancreas. Impression: Cholelithiasis. Atherosclerotic vascular disease
--- NOTE | 2017-01-23 16:44 | General Progress Note ---
Assessment/Plan Problem List: (1) JEN (acute kidney injury) ICD Codes: N17.9 - Acute kidney failure, unspecified SNOMED: 26069506 (2) Abdominal pain ICD Codes: R10.9 - Unspecified abdominal pain SNOMED: 05396099 Qualifiers: Qualified Codes: R10.30 - Lower abdominal pain, unspecified (3) Hypokalemia ICD Codes: E87.6 - Hypokalemia SNOMED: 95770894 (4) Hypocalcemia ICD Codes: E83.51 - Hypocalcemia SNOMED: 3445896 (5) Hypoalbuminemia ICD Codes: E88.09 - Other disorders of plasma-protein metabolism, not elsewhere classified SNOMED: 020926237 (6) Pyelonephritis ICD Codes: N12 - Tubulo-interstitial nephritis, not specified as acute or chronic SNOMED: 54270449 Status: stable Assessment/Plan Attempt to obtain OSH records from [facility] given recent admission there for similar symptoms and pt diagnosed w/ pyelonephritis--- request has been sent F/u U/S abd F/u CT a/p--shows minimal left hydroureter noted without an obstructing stone which may represent recent passage of stone vs pyelonephritis/pyelitis Cont home meds including IV ertapenem which is to end 5/2 per ID consulted, appreciate rec's Will consult renal given rising Cr IVFs Pain control, bowel regimen, supportive care Pt to f/u with PCP Dr. Waddell at [facility] on d/c FULL CODE Subjective Date patient seen: Jan 23, 2017 Time patient seen: 16:43 ROS Limited/Unobtainable: No Constitutional: Reports: no symptoms HEENT: Reports: no symptoms Cardiovascular: Reports: no symptoms Respiratory: Reports: no symptoms Gastrointestinal/Abdominal: Reports: abdominal pain Genitourinary: Reports: no symptoms Neurologic/Psychiatric: Reports: no symptoms Endocrine: Reports: no symptoms Hematologic/Lymphatic: Reports: no symptoms Allergies: Coded Allergies: No Known Allergies (Unverified , 01/21/17) All Systems: reviewed and negative except above Subjective Abd pain improved Cr rising to 1.9 Objective Last 24 Hour Vital Signs Date Time Temp Pulse Resp B/P Pulse Ox O2 Delivery O2 Flow Rate FiO2 01/23/17 16:22 97.0 73 14 124/62 96 Room Air 01/23/17 14:38 138/78 01/23/17 11:24 97.9 76 14 138/78 97 Nasal Cannula 01/23/17 08:19 78 134/66 01/23/17 08:19 78 134/66 01/23/17 07:45 98.1 78 14 134/66 93 Room Air 01/23/17 06:49 78 18 Room Air 01/23/17 04:00 97.0 70 18 118/62 99 Room Air 01/23/17 00:00 97.0 70 18 120/63 97 Room Air 01/22/17 22:00 128/68 01/22/17 21:00 69 128/68 01/22/17 20:00 96.6 68 18 111/60 95 Room Air 01/22/17 19:51 71 18 Room Air Intake and Output 01/22/17 01/23/17 19:00 07:00 Intake Total 300 ml 420 ml Balance 300 ml 420 ml Intake Oral 200 ml 420 ml IV Total 100 ml # Voids 4 5 # Bowel Movements 1 Laboratory Tests 01/23/17 09:15: White Blood Count 3.9L, Red Blood Count 4.86, Hemoglobin 12.9, Hematocrit 41.5, Mean Corpuscular Volume 85, Mean Corpuscular Hemoglobin 26.6L, Mean Corpuscular Hemoglobin Concent 31.1L, Red Cell Distribution Width 15.0H, Platelet Count 250 , Mean Platelet Volume 6.8, Neutrophils (%) (Auto) 54.6, Lymphocytes (%) (Auto) 32.1, Monocytes (%) (Auto) 9.8, Eosinophils (%) (Auto) 2.7, Basophils (%) (Auto ) 0.9, Sodium Level 134L, Potassium Level 3.9, Chloride Level 94L, Carbon Dioxide Level 22, Anion Gap 18H, Blood Urea Nitrogen 25H, Creatinine 1.9H, Estimat Glomerular Filtration Rate 26.9, Glucose Level 311#H, Hemoglobin A1c 7.3H, Calcium Level 8.9, Magnesium Level 2.1, Total Bilirubin 0.2, Direct Bilirubin 0.1, Aspartate Amino Transf (AST/SGOT) 23, Alanine Aminotransferase ( ALT/SGPT) 16, Alkaline Phosphatase 66, Total Protein 7.6, Albumin 3.1L Height (Feet): 5 Height (Inches): 4.00 Weight (Pounds): 164 Objective General: alert, cooperative, no distress, appears stated age Head: normocephalic, without obvious abnormality, atraumatic Eyes: conjunctivae/corneas clear. PERRL, EOM's intact Throat: lips, mucosa, and tongue normal. MMM Neck: supple, symmetrical, trachea midline, and no JVD Lungs: clear to auscultation bilaterally Heart: regular rate and rhythm, S1, S2 normal, no murmur, click, rub or gallop Abdomen: soft, non-tender, non-distended, bowel sounds normal; no masses or organomegaly Extremities: extremities normal, atraumatic, no cyanosis or edema Pulses: 2+ and symmetric Skin: skin color, texture, turgor normal; no rashes or lesions Neurologic: grossly normal, no focal deficits Milly Khan M.D. Jan 23, 2017 16:44
[2017-01-23 20:00] VITALS: BP 139/66
[2017-01-24] VITALS: BP 131/72
[2017-01-24 04:00] VITALS: BP 141/72
--- NOTE | 2017-01-24 04:37 | Consultation ---
DATE OF CONSULTATION: 01/23/2017 CONSULTING PHYSICIAN: Polly Rodgers M.D. ATTENDING PHYSICIAN: Dm Rubio M.D. I was asked by Dr. Atkins to see this patient. REASON FOR CONSULTATION: History of UTI, pyelonephritis, and antibiotic management CHIEF COMPLAINT: Coming into the hospital with abdominal pain. The patient also has nonacute renal failure with precipitous rise in creatinine. HISTORY OF PRESENT ILLNESS: This is a very pleasant 61-year-old female, who has multiple medical problems, who presented to [facility], where she presented with abdominal pain and she was diagnosed with pyelonephritis. The patient was placed on ertapenem. Followup UA and urine culture here. The urinalysis was positive, but urine culture was negative. Infectious Disease consultation was requested because the patient has UTI and pyelonephritis on antibiotic management. The patient was on carbapenem. Because the patient was on carbapenem, infectious disease consultation was also requested. The patient is on ertapenem at this time. It was also noted that her creatinine is increasing significantly. Urine culture so far here at [facility] is negative, however, urinalysis was positive, which showed 1+ leukocyte esterase and 10-15 white blood cells. MAR was noted. Orders were noted. Notes and records reviewed. Case was communicated with Dr. Atkins. REVIEW OF SYSTEMS: Constitutional: The patient has generalized weakness and fatigue. No fevers, chills, or night sweats. Head And Neck: No head pain or neck pain. No thrush. Cardiac: No chest pain. Gastrointestinal: No nausea, vomiting, or diarrhea. She has some abdominal discomfort. Genitourinary: She has no Morales. She has may be mild dysuria and frequency but nothing significant. Skin: No rash or itching. Extremities: No extremity pain. Neurologic: No seizures. PAST MEDICAL HISTORY: The patient has past medical history of hypertension, hyperlipidemia, history of diabetes, history of abdominal pain, and history of UTI. She has an increase in creatinine. She has anemia. She has a history of pyelonephritis along with UTI. ALLERGIES: She has no known drug allergies. FAMILY HISTORY: Noncontributory. SOCIAL HISTORY: Negative for smoking, alcohol, or drug abuse. MEDICATIONS: Upon reviewing the MAR, she is on the following medications: She is on insulin and ertapenem. She is on amlodipine, Norvasc, aspirin, Neurontin, Tylenol, atorvastatin, Colace, Coreg, Lipitor, hydralazine, Bisacodyl, polyethylene, albuterol, DuoNeb treatments, Zofran, diphenhydramine. Please see medications in medical order and past medical history in medical order. PHYSICAL EXAMINATION: VITAL SIGNS: Temperature 97.9 degrees, pulse rate 76, respiratory rate 14, blood pressure 130/70, and saturation 97%. GENERAL: Alert and responsive, in no acute distress. She seems to be oriented. HEAD AND NECK: Oral exam, no thrush. Eye exam, no icterus. Neck is supple. No JVD. No sinus tenderness. Normocephalic. No facial droop. No neck stiffness. LUNGS: Clear bilaterally. No rhonchi or rales. HEART: Regular. No gallop or murmur. ABDOMEN: Soft. Positive bowel sounds. Some tenderness. No rebound. SKIN: No rash or dermatitis. MUSCULOSKELETAL: No effusions or contractures. PERIPHERAL VASCULAR: No cyanosis or gangrene. RECTAL: Deferred. GENITOURINARY: Without Morales. LINES: Line sites without phlebitis. NEUROLOGIC: Generalized weakness. Responsive. LABORATORY AND DIAGNOSTIC DATA: Laboratory data as follows: UA had 1+ leukocyte esterase, 10-15 white blood cells. Urine culture is negative. Creatinine now is up to 1.9. She came in with a creatinine of 0.9. White count 3.9, hemoglobin 12.9, platelet count 250,000. Potassium also on admission was 2.2 and calcium 5.2. Urine culture now is negative so far. Imaging studies, CT scan of the abdomen and pelvis, because she did have some abdominal discomfort, showed findings consistent with recent passage of stone versus pyelonephritis or pyelitis and now passing of the kidney stone. The chest x-ray abdominal x-ray was negative. ASSESSMENT AND PLAN: 1. The patient with history of urinary tract infection and pyelonephritis. CT scan was also suggestive of possible pyelonephritis. The patient was on ertapenem. Her urine culture at this time is negative. It seemed that the ertapenem had sterilized the urine. The patient was supposed to be on ertapenem for one week, starting on 01/20/2017. At this time, we will continue ertapenem. The patient will check following urine culture results and check followup labs. 2. Acute kidney injury, elevated creatinine. 3. Hypokalemia . 4. Hypocalcemia. 5. Diabetes mellitus. 6. Hypertension. 7. Hyperlipidemia. 8. Anemia. 9. Continue treatment per primary consultants. 10. MAR was noted. 11. Notes were reviewed. 12. Social history negative. 13. Family history is noncontributory. 14. Case was discussed with RN. 15. Case was discussed with the patient. 16. Case was discussed with the primary care, Dr. Atkins. 17. Wound care protocol. Wounds were reviewed. There is no acute reinfected wound. Polly Rodgers M.D. DR: Vicky JOB#: [id number] CC:
[2017-01-24] MEDS: Ertapenem 1 GM in NS 55 ML IVPB SCH (06:00)
[2017-01-24] MEDS: HydrALAZINE 50mg tab ORAL SCH ×3 (06:00→21:51)
[2017-01-24] MEDS: NovoLOG Insulin Flexpen SUBQ SCH ×4 (06:35→21:13)
[2017-01-24 08:18] VITALS: BP 149/75
[2017-01-24 08:21] LABS: BASOPHILS % (AUTO) 0.6 % (0.0-2.0); EOSINOPHILS % (AUTO) 2.6 % (0.0-3.0); LYMPHOCYTES % (AUTO) 27.9 % (20.0-45.0); MEAN CORPUSCULAR HEMOGLOBIN 26.9 PG (27.0-31.0); MEAN CORPUSCULAR HGB CONC 31.5 G/DL (32.0-36.0); MEAN CORPUSCULAR VOLUME 85 FL (80-99); MEAN PLATELET VOLUME 6.8 FL (6.5-10.1); MONOCYTES % (AUTO) 8.7 % (1.0-10.0); NEUTROPHILS % (AUTO) 60.3 % (45.0-75.0); PLATELET COUNT 226 K/UL (150-450); RED BLOOD COUNT 4.62 M/UL (4.20-5.40); RED CELL DISTRIBUTION WIDTH 14.8 % (11.6-14.8); WHITE BLOOD COUNT 4.3 K/UL (4.8-10.8)
[2017-01-24 08:31] LABS: ALANINE AMINOTRANSFERASE 15 U/L (3-33); ALBUMIN/GLOBULIN RATIO 0.7 (1.0-2.7); ANION GAP 16 (5-15); ASPARTATE AMINO TRANSFERASE 22 U/L (5-40); CALCIUM 8.7 mg/dL (8.6-10.2); CARBON DIOXIDE 22 mEQ/L (20-30); CHLORIDE 100 mEQ/L (98-107); CHOLESTEROL 192 mg/dL (< 200); CHOLESTEROL/HDL RATIO 3.4 (3.3-4.4); CREATININE 1.6 mg/dL (0.5-0.9); CRP QUANT < 0.3 mg/dL (< 0.5); GLOMERULAR FILTRATION RATE 32.8 mL/min (>60); HEMOLYSIS 1; LDL CHOLESTEROL (CALC.) 94 mg/dL (60-99); MAGNESIUM 1.8 mg/dL (1.7-2.5); PHOSPHORUS 3.2 mg/dL (2.5-4.8); POTASSIUM 3.8 mEQ/L (3.4-4.9); SODIUM 138 mEQ/L (135-145); TOTAL PROTEIN 7.2 g/dL (6.6-8.7); URIC ACID 7.1 mg/dL (3.0-7.5)
[2017-01-24] MEDS ORDERED: Tubing IV Secondary IV ONE (08:55)
[2017-01-24] MEDS: Docusate 100mg tablet ORAL SCH ×2 (09:00→21:12)
[2017-01-24] MEDS: Aspirin Baby 81mg ORAL SCH (09:01)
[2017-01-24] MEDS: Carvedilol 6.25mg Tab ORAL SCH ×2 (09:01→21:12)
[2017-01-24 12:10] VITALS: BP 135/73
--- NOTE | 2017-01-24 13:20 | General Progress Note ---
Assessment/Plan Status: stable Assessment/Plan status: Acute renal failure Cr 0.4 up to 1.9 now down 1.6 ? Dehydration DM + Proteinuria , likely Diabetic Nephropathy Others: (1) Abdominal pain (2) Hypokalemia- resolved (3) Hypocalcemia- resolved (4) Hypoalbuminemia (5) Pyelonephritis Plan: Hydrate monitor renal parameters avoid nephrotoxics Subjective ROS Limited/Unobtainable: No Constitutional: Reports: malaise Allergies: Coded Allergies: No Known Allergies (Unverified , 01/21/17) Objective Last 24 Hour Vital Signs Date Time Temp Pulse Resp B/P Pulse Ox O2 Delivery O2 Flow Rate FiO2 01/24/17 12:10 98.2 72 14 135/73 94 Room Air 01/24/17 09:02 81 149/75 01/24/17 09:01 81 149/75 01/24/17 08:18 97.9 81 15 149/75 95 Room Air 01/24/17 06:00 141/72 01/24/17 04:00 97.9 74 18 141/72 97 Room Air 01/24/17 00:00 97.7 74 18 131/72 93 Room Air 01/23/17 21:12 141/71 01/23/17 20:31 74 139/66 01/23/17 20:00 98.1 74 18 139/66 95 Room Air 01/23/17 18:42 74 18 Room Air 01/23/17 16:22 97.0 73 14 124/62 96 Room Air 01/23/17 14:38 138/78 Intake and Output 01/23/17 01/24/17 19:00 07:00 Intake Total 1400 ml 1305 ml Output Total 800 ml Balance 600 ml 1305 ml Intake Oral 1200 ml 250 ml IV Total 200 ml 1055 ml Output Urine Total 800 ml # Voids 3 # Bowel Movements 2 3 Laboratory Tests 01/23/17 16:20: Stool Occult Blood [Pending] 01/24/17 07:10: White Blood Count 4.3L, Red Blood Count 4.62, Hemoglobin 12.4, Hematocrit 39.4, Mean Corpuscular Volume 85, Mean Corpuscular Hemoglobin 26.9L, Mean Corpuscular Hemoglobin Concent 31.5L, Red Cell Distribution Width 14.8, Platelet Count 226, Mean Platelet Volume 6.8, Neutrophils (%) (Auto) 60.3, Lymphocytes (%) (Auto) 27.9, Monocytes (%) (Auto) 8.7, Eosinophils (%) (Auto) 2.6, Basophils (%) (Auto ) 0.6, Sodium Level 138, Potassium Level 3.8, Chloride Level 100, Carbon Dioxide Level 22, Anion Gap 16H, Blood Urea Nitrogen 21, Creatinine 1.6H, Estimat Glomerular Filtration Rate 32.8, Glucose Level 181#H, Uric Acid 7.1, Calcium Level 8.7, Phosphorus Level 3.2, Magnesium Level 1.8, Total Bilirubin 0.2, Gamma Glutamyl Transpeptidase 17, Aspartate Amino Transf (AST/SGOT) 22, Alanine Aminotransferase (ALT/SGPT) 15, Alkaline Phosphatase 63, Total Creatine Kinase 39, C-Reactive Protein, Quantitative < 0.3, Pro-B-Type Natriuretic Peptide 1361H, Total Protein 7.2, Albumin 3.0L, Globulin 4.2, Albumin/Globulin Ratio 0.7L, Triglycerides Level 210H, Cholesterol Level 192, LDL Cholesterol 94 , HDL Cholesterol 56, Cholesterol/HDL Ratio 3.4, Folate [Pending], Thyroid Stimulating Hormone (TSH) 1.070 Height (Feet): 5 Height (Inches): 4.00 Weight (Pounds): 160 General Appearance: no apparent distress Objective Pe not changed ERNST ANGELES Jan 24, 2017 13:20
[2017-01-24 15:58] VITALS: BP 141/73
--- NOTE | 2017-01-24 16:50 | Discharge Instructions ---
Discharge Instructions Discharge Instructions Follow up with: primary care physician in 2 weeks Call MD/Return to Hospital if: fever is > 100.4 For Congestive Heart Failure Reminder Report to your physician any weight gain of 5 pounds or more in one week. LA NENA CESPEDES N.P. Jan 24, 2017 16:50
--- NOTE | 2017-01-24 19:14 | General Progress Note ---
Assessment/Plan Assessment/Plan Assessment/Plan Problem List: (1) JEN (acute kidney injury) ICD Codes: N17.9 - Acute kidney failure, unspecified SNOMED: 00635296 (2) Abdominal pain ICD Codes: R10.9 - Unspecified abdominal pain SNOMED: 63237253 Qualifiers: Qualified Codes: R10.30 - Lower abdominal pain, unspecified (3) Hypokalemia ICD Codes: E87.6 - Hypokalemia SNOMED: 01435880 (4) Hypocalcemia ICD Codes: E83.51 - Hypocalcemia SNOMED: 4659639 (5) Hypoalbuminemia ICD Codes: E88.09 - Other disorders of plasma-protein metabolism, not elsewhere classified SNOMED: 929329585 (6) Pyelonephritis ICD Codes: N12 - Tubulo-interstitial nephritis, not specified as acute or chronic SNOMED: 90412520 Status: stable Assessment/Plan Attempt to obtain OSH records from [facility] given recent admission there for similar symptoms and pt diagnosed w/ pyelonephritis--- request has been sent Electrolytes now in normal ranges Cont home meds including IV ertapenem which is to end 01/27 per ID consulted, appreciate rec's: to continue Ertapenum until 01/27/17; no growth here Cr now 1.6, JEN resolving IVFs Pain control, bowel regimen, supportive care Pt to f/u with PCP Dr. Waddell at [facility] on d/c Plan for d/c tmrw when care management has called home health FULL CODE Subjective Date patient seen: Jan 24, 2017 Time patient seen: 19:09 Constitutional: Denies: chills, diaphoresis HEENT: Denies: blurred vision, eye pain Cardiovascular: Denies: chest pain, edema Respiratory: Denies: cough, orthopnea Gastrointestinal/Abdominal: Reports: diarrhea - x 3 today Genitourinary: Denies: burning, discharge Neurologic/Psychiatric: Denies: anxiety, depressed Endocrine: Denies: excessive sweating, flushing Hematologic/Lymphatic: Denies: anemia Allergies: Coded Allergies: No Known Allergies (Unverified , 01/21/17) Objective Last 24 Hour Vital Signs Date Time Temp Pulse Resp B/P Pulse Ox O2 Delivery O2 Flow Rate FiO2 01/24/17 15:58 98.1 78 15 141/73 94 Room Air 01/24/17 13:39 135/73 01/24/17 13:36 79 18 Room Air 01/24/17 12:10 98.2 72 14 135/73 94 Room Air 01/24/17 09:02 81 149/75 01/24/17 09:01 81 149/75 01/24/17 08:18 97.9 81 15 149/75 95 Room Air 01/24/17 06:00 141/72 01/24/17 04:00 97.9 74 18 141/72 97 Room Air 01/24/17 00:00 97.7 74 18 131/72 93 Room Air 01/23/17 21:12 141/71 01/23/17 20:31 74 139/66 01/23/17 20:00 98.1 74 18 139/66 95 Room Air Intake and Output 01/23/17 01/24/17 19:00 07:00 Intake Total 1400 ml 1305 ml Output Total 800 ml Balance 600 ml 1305 ml Intake Oral 1200 ml 250 ml IV Total 200 ml 1055 ml Output Urine Total 800 ml # Voids 3 # Bowel Movements 2 3 Laboratory Tests 01/24/17 07:10: White Blood Count 4.3L, Red Blood Count 4.62, Hemoglobin 12.4, Hematocrit 39.4, Mean Corpuscular Volume 85, Mean Corpuscular Hemoglobin 26.9L, Mean Corpuscular Hemoglobin Concent 31.5L, Red Cell Distribution Width 14.8, Platelet Count 226, Mean Platelet Volume 6.8, Neutrophils (%) (Auto) 60.3, Lymphocytes (%) (Auto) 27.9, Monocytes (%) (Auto) 8.7, Eosinophils (%) (Auto) 2.6, Basophils (%) (Auto ) 0.6, Sodium Level 138, Potassium Level 3.8, Chloride Level 100, Carbon Dioxide Level 22, Anion Gap 16H, Blood Urea Nitrogen 21, Creatinine 1.6H, Estimat Glomerular Filtration Rate 32.8, Glucose Level 181#H, Uric Acid 7.1, Calcium Level 8.7, Phosphorus Level 3.2, Magnesium Level 1.8, Total Bilirubin 0.2, Gamma Glutamyl Transpeptidase 17, Aspartate Amino Transf (AST/SGOT) 22, Alanine Aminotransferase (ALT/SGPT) 15, Alkaline Phosphatase 63, Total Creatine Kinase 39, C-Reactive Protein, Quantitative < 0.3, Pro-B-Type Natriuretic Peptide 1361H, Total Protein 7.2, Albumin 3.0L, Globulin 4.2, Albumin/Globulin Ratio 0.7L, Triglycerides Level 210H, Cholesterol Level 192, LDL Cholesterol 94 , HDL Cholesterol 56, Cholesterol/HDL Ratio 3.4, Folate [Pending], Thyroid Stimulating Hormone (TSH) 1.070 Height (Feet): 5 Height (Inches): 4.00 Weight (Pounds): 160 General Appearance: no apparent distress, alert EENT: PERRL/EOMI, normal ENT inspection Neck: non-tender, normal alignment, supple Cardiovascular: normal peripheral pulses, normal rate Respiratory/Chest: chest wall non-tender, lungs clear, normal breath sounds Abdomen: normal bowel sounds, non tender, soft Genitourinary/Rectal: normal genital exam Extremities: normal range of motion, non-tender Edema: no edema noted Arm (L), no edema noted Arm (R), no edema noted Leg (L), no edema noted Leg (R), no edema noted Pedal (L), no edema noted Pedal (R), no edema noted Generalized Neurologic: bus cleaner II-XII grossly normal, no motor/sensory deficits, alert, oriented x 3 Objective Laboratory Tests Test 01/24/17 07:10 White Blood Count 4.3 K/UL (4.8-10.8) L Red Blood Count 4.62 M/UL (4.20-5.40) Hemoglobin 12.4 G/DL (12.0-16.0) Hematocrit 39.4 % (37.0-47.0) Mean Corpuscular Volume 85 FL (80-99) Mean Corpuscular Hemoglobin 26.9 PG (27.0-31.0) L Mean Corpuscular Hemoglobin Concent 31.5 G/DL (32.0-36.0) L Red Cell Distribution Width 14.8 % (11.6-14.8) Platelet Count 226 K/UL (150-450) Mean Platelet Volume 6.8 FL (6.5-10.1) Neutrophils (%) (Auto) 60.3 % (45.0-75.0) Lymphocytes (%) (Auto) 27.9 % (20.0-45.0) Monocytes (%) (Auto) 8.7 % (1.0-10.0) Eosinophils (%) (Auto) 2.6 % (0.0-3.0) Basophils (%) (Auto) 0.6 % (0.0-2.0) Sodium Level 138 mEQ/L (135-145) Potassium Level 3.8 mEQ/L (3.4-4.9) Chloride Level 100 mEQ/L (98-107) Carbon Dioxide Level 22 mEQ/L (20-30) Anion Gap 16 (5-15) H Blood Urea Nitrogen 21 mg/dL (7-23) Creatinine 1.6 mg/dL (0.5-0.9) H Estimat Glomerular Filtration Rate 32.8 mL/min (>60) Glucose Level 181 mg/dL (74-106) #H Uric Acid 7.1 mg/dL (3.0-7.5) Calcium Level 8.7 mg/dL (8.6-10.2) Phosphorus Level 3.2 mg/dL (2.5-4.8) Magnesium Level 1.8 mg/dL (1.7-2.5) Total Bilirubin 0.2 mg/dL (0.0-1.2) Gamma Glutamyl Transpeptidase 17 U/L (5-36) Aspartate Amino Transf (AST/SGOT) 22 U/L (5-40) Alanine Aminotransferase (ALT/SGPT) 15 U/L (3-33) Alkaline Phosphatase 63 U/L (35-104) Total Creatine Kinase 39 U/L (26-140) C-Reactive Protein, Quantitative < 0.3 mg/dL (< 0.5) Pro-B-Type Natriuretic Peptide 1361 pg/mL (0-125) H Total Protein 7.2 g/dL (6.6-8.7) Albumin 3.0 g/dL (3.5-5.2) L Globulin 4.2 g/dL Albumin/Globulin Ratio 0.7 (1.0-2.7) L Triglycerides Level 210 mg/dL (< 150) H Cholesterol Level 192 mg/dL (< 200) LDL Cholesterol 94 mg/dL (60-99) HDL Cholesterol 56 mg/dL (> 60) Cholesterol/HDL Ratio 3.4 (3.3-4.4) Folate Pending Thyroid Stimulating Hormone (TSH) 1.070 uIU/mL (0.300-4.500) LA NENA CESPEDES N.P. Jan 24, 2017 19:14
[2017-01-24 20:00] VITALS: BP 158/78
[2017-01-24] MEDS: Atorvastatin 80mg tab ORAL SCH (21:12)
[2017-01-25] VITALS: BP 149/69
[2017-01-25 04:00] VITALS: BP_SYST 127; BP_SYST 140; BP_DIAS 51; BP_DIAS 76
[2017-01-25] MEDS: Ertapenem 1 GM in NS 55 ML IVPB SCH (05:02)
[2017-01-25] MEDS: HydrALAZINE 50mg tab ORAL SCH (05:49)
[2017-01-25] MEDS: NovoLOG Insulin Flexpen SUBQ SCH (05:51)
[2017-01-25 07:58] VITALS: BP 148/72
[2017-01-25 08:06] LABS: ALBUMIN/GLOBULIN RATIO 0.7 (1.0-2.7); CALCIUM 8.7 mg/dL (8.6-10.2); CREATININE 1.3 mg/dL (0.5-0.9); GLOMERULAR FILTRATION RATE 41.6 mL/min (>60); MAGNESIUM 1.5 mg/dL (1.7-2.5); PHOSPHORUS 2.8 mg/dL (2.5-4.8); POTASSIUM 3.4 mEQ/L (3.4-4.9); TOTAL PROTEIN 7.2 g/dL (6.6-8.7); URIC ACID 6.5 mg/dL (3.0-7.5)
--- NOTE | 2017-01-25 08:51 | Discharge Summary ---
Discharge Summary Hospital Course Date of Admission Jan 21, 2017 at 19:20 Date of Discharge January 25, 2017 Admitting Diagnosis HYPOKALEMIA AND HYPOCALCEMIA, ABD PAIN, ANEMIA HPI Yamileth Armijo is a 61 year old female who was admitted on Jan 21, 2017 at 19:20 for Hypokalemia,Hypocalcemia,Abdominal Pain,Anemia. 61 y/o female with pmh of HTN, HLD, DM2 who presents with abd pain. Pt recently admitted at [facility] form 01/15-01/19 when she presented with similar symptoms of abd pain. She was diagnosed with pyelonephritis and diagnosed home w/ home health for IV ertapenem x 1 week (01/20-01/27) per . Pt was doing well but noted worsening abd pain described as LLQ pain, worse w/ movement. She denies f/c, n/v, d/c, chest pain, SOB. Pt denies blood in stool, dysuria. Paramedics were called since pain became too severe while at home. In ED, pt noted to have hgb 7.3. Per ED physician, guaiac neg stool. Pt was given 2U pRBCs. Labs also notable for hypokalemia to 2.2, hypoclacemia to 5.2 but ionized Ca wnl, hypoalbuinemia. Abd x-ray neg. Consultations ID: Dr. Rodgers Nephrology: [facility] Course She was placed in the hospital for monitoring of electrolytes and further consultations with nephrology and infectious disease. Patient's electrolytes improved and patient was discharged back home for continuation of Ertapenum IV with HH until 01/27/17. Patient should follow-up with her PCP at [facility]. She should return if she experiences fever, chills, uncontrolled pain. Discharge Condition Upon Discharge: improving Discharge Disposition Patient was discharged to home with HH for IV antibiotics Discharge Diagnoses: (1) Pyelonephritis (2) Hypokalemia (3) Hypocalcemia (4) JEN (acute kidney injury) Discharge Instructions Discharge Instructions Follow up with: primary care physician in 2 weeks Call MD/Return to Hospital if: fever is > 100.4 LA NENA CESPEDES N.P. Jan 25, 2017 08:51
[2017-01-25] MEDS: Docusate 100mg tablet ORAL SCH (09:00)
--- NOTE | 2017-01-25 09:00 | Discharge Instructions ---
Discharge Instructions Discharge Instructions Follow up with: your primary Doctor Bairon at [facility] Call MD/Return to Hospital if: you have fever > 101, confusion, weakness, or any new problems Services at Discharge: home health services Diet: regular Resume Normal Activity?: Yes Activity: up ad chilango Special Instructions Move to decrease pressure on ulcer For Congestive Heart Failure Reminder Report to your physician any weight gain of 5 pounds or more in one week. LA NENA CESPEDES N.P. Jan 25, 2017 09:00
[2017-01-25 09:01] VITALS: BP 148/72
[2017-01-25] MEDS: Carvedilol 6.25mg Tab ORAL SCH (09:01)
[2017-01-25] MEDS: Aspirin Baby 81mg ORAL SCH (09:01)
--- NOTE | 2017-01-25 13:00 | General Progress Note ---
Assessment/Plan Status: stable Status Narrative Cr down Assessment/Plan status: Acute renal failure Cr 0.4 up to 1.9 now down 1.6 ? Dehydration DM + Proteinuria , likely Diabetic Nephropathy Others: (1) Abdominal pain (2) Hypokalemia- resolved (3) Hypocalcemia- resolved (4) Hypoalbuminemia (5) Pyelonephritis Plan: DC hydrate DC home? Subjective Date patient seen: Jan 25, 2017 Time patient seen: 08:00 ROS Limited/Unobtainable: No Allergies: Coded Allergies: No Known Allergies (Unverified , 01/21/17) Objective Last 24 Hour Vital Signs Date Time Temp Pulse Resp B/P Pulse Ox O2 Delivery O2 Flow Rate FiO2 01/25/17 09:01 74 148/72 01/25/17 09:01 74 148/72 01/25/17 07:58 97.9 74 21 148/72 97 Room Air 01/25/17 07:01 74 18 Room Air 01/25/17 05:49 149/76 01/25/17 04:00 97.9 70 20 140/76 94 Room Air 01/25/17 04:00 97.9 70 20 127/51 94 Room Air 01/25/17 00:00 97.7 71 20 149/69 94 Room Air 01/24/17 21:51 149/78 01/24/17 21:12 78 149/78 01/24/17 20:00 98.2 78 18 158/78 95 Room Air 01/24/17 19:30 76 18 Room Air 21 01/24/17 15:58 98.1 78 15 141/73 94 Room Air 01/24/17 13:39 135/73 01/24/17 13:36 79 18 Room Air Intake and Output 01/24/17 01/25/17 19:00 07:00 Intake Total 2100 ml 1187 ml Output Total 400 ml Balance 1700 ml 1187 ml Intake Oral 1000 ml 120 ml IV Total 1100 ml 1067 ml Output Urine Total 400 ml # Voids 2 2 # Bowel Movements 2 Laboratory Tests 01/25/17 07:10: Sodium Level 140, Potassium Level 3.4, Chloride Level 102, Carbon Dioxide Level 21, Anion Gap 17H, Blood Urea Nitrogen 16, Creatinine 1.3H, Estimat Glomerular Filtration Rate 41.6, Glucose Level 175H, Uric Acid 6.5, Calcium Level 8.7, Phosphorus Level 2.8, Magnesium Level 1.5L, Total Bilirubin 0.2, Aspartate Amino Transf (AST/SGOT) 22, Alanine Aminotransferase (ALT/SGPT) 16, Alkaline Phosphatase 64, Total Protein 7.2, Albumin 3.0L, Globulin 4.2, Albumin/Globulin Ratio 0.7L Height (Feet): 5 Height (Inches): 4.00 Weight (Pounds): 167 General Appearance: no apparent distress Objective Pe not changed ERNST ANGELES Jan 25, 2017 13:00
[2017-01-27 08:37] LABS: VITAMIN D 25-OH TOTAL 14 ng/mL (.)
== END 2017-01-25 11:37 | disposition home health service (06) | DRG 460 ==
LOC: EDBD 16:08 → EMR 16:42 → 4E 19:20 → EDBEDREQ 20:03
PROC: 30233N1 Transfusion of Nonautologous Red Blood Cells into Peripheral Vein, Percutaneous Approach (ICD-10-PCS; principal; 2017-01-21)
DX: N17.9 Acute kidney failure, unspecified (principal); E88.09 Other disorders of plasma-protein metabolism, not elsewhere classified; I10 Essential (primary) hypertension; E83.51 Hypocalcemia; D64.9 Anemia, unspecified; E11.9 Type 2 diabetes mellitus without complications; N12 Tubulo-interstitial nephritis, not specified as acute or chronic; E78.5 Hyperlipidemia, unspecified; E87.6 Hypokalemia
CPT/HCPCS: 36415; 74000; 74176; 76700; 80048; 80053; 80061; 80076; 81003; 82270; 82306; 82330; 82550; 82746; 82962; 82977; 83036; 83690; 83735; 83880; 84100; 84134; 84443; 84550; 85007; 85025; 85044; 85060; 85610; 85730; 86140; 86850; 86900; 86901; 86920; 87081; 87086; 93005; 94664; J1815; J2405